=== PATIENT | female | born 1985 | race Caucasian/White ===

== ENCOUNTER 2021-05-28 19:06 | Emergency (ER) | payer OTHER ==
[~2021-05-28] VITALS: Ht 154.9 cm; Wt 78.0 kg
[2021-05-28 19:14] VITALS: BP 145/88
--- NOTE | 2021-05-28 19:17 | NUR ---
PT AMBULATED TO ER BED 3 WITH A STEADY GAIT.
--- NOTE | 2021-05-28 19:24 | NUR ---
COLLECTED TOSHA IBRAHIM, WALKED TO LAB.
--- NOTE | 2021-05-28 19:27 | NUR ---
36 Y/O FEMALE BIB SELF FROM HOME, PT STATES SHE WAS HAVING SORE THROAT, DIARRHEA AND BODY ACHES SINCE YESTERDAY. PT DENIES SOB, COUGH, AND CHEST PAIN. PMH: PREECLAMPSIA NKA
--- NOTE | 2021-05-28 19:29 | NUR ---
Patient discharged with v/s stable. Written and verbal after care instructions given and explained. Patient verbalized understanding. Ambulatory with steady gait. All questions addressed prior to discharge. Advised to follow up with PMD.
--- NOTE | 2021-05-28 19:40 | NUR ---
NOVEL SWAB COLLECTED, WALKED TO LAB AND HANDED TO CPT. MAGDALENA
== END 2021-05-28 19:29 | disposition home or self-care (01) ==
LOC: MED 19:06
DX: U07.1 COVID-19 (principal)
CPT/HCPCS: 99283; U0003